=== PATIENT | male | born 1955 | race Two or more races ===

== ENCOUNTER 2024-02-21 16:28 | Inpatient (IN) | payer MEDICARE, OTHER ==
[~2024-02-21] VITALS: Ht 167.6 cm; Wt 81.6 kg
[2024-02-21 17:03] LABS: BASOPHILS % (AUTO) 0.4 % (0.0-2.0); EOSINOPHILS # (AUTO) 0.2 K/uL (0.0-0.7); EOSINOPHILS % (AUTO) 2.9 % (0.0-6.0); HEMATOCRIT 38 % (39-51); HEMOGLOBIN 13.1 g/dL (13.5-17.5); LYMPHOCYTES # (AUTO) 2.1 K/uL (0.8-4.8); LYMPHOCYTES % (AUTO) 26.7 % (20.0-44.0); MEAN CORPUSCULAR HEMOGLOBIN 33 PG (26.0-33.0); MEAN CORPUSCULAR HGB CONC 35 g/dl (31.0-36.0); MEAN CORPUSCULAR VOLUME 94 fL (80-96); MONOCYTES # (AUTO) 0.8 K/uL (0.1-1.30); MONOCYTES % (AUTO) 10.2 % (2.0-12.0); NEUTROPHILS # (AUTO) 4.7 K/uL (1.8-8.9); NEUTROPHILS % (AUTO) 59.8 % (43.0-81.0); PLATELET COUNT (AUTO) 269 K/uL (150-450); RED BLOOD CELL COUNT(AUTO) 4.01 MIL/uL (4.5-6.0); RED CELL DISTRIBUTION WIDTH 13.9 % (11.5-15.0); WHITE BLOOD COUNT (AUTO) 7.8 K/uL (4.3-11.0)
[2024-02-21] MEDS ORDERED: IBUP-1953 PO (17:03)
[2024-02-21] MEDS ORDERED: MAGN400O6 PO (17:03)
[2024-02-21] MEDS ORDERED: DIVA250T4 PO (17:03)
[2024-02-21] MEDS ORDERED: FAMO20TA8 PO (17:03)
[2024-02-21] MEDS ORDERED: DOCU100C36 PO (17:03)
[2024-02-21] MEDS ORDERED: ARIP5TAB10 PO (17:03)
[2024-02-21] MEDS ORDERED: NIFE-35 PO (17:03)
[2024-02-21] MEDS ORDERED: RISP2TAB5 PO (17:03)
[2024-02-21] MEDS ORDERED: ACET325T53 PO (17:03)
[2024-02-21 17:22] LABS: CARBON DIOXIDE 25 mmol/L (21-32); CHLORIDE 95 mmol/L (98-107); CREATININE 0.9 mg/dL (0.6-1.3); GLUCOSE 91 mg/dL (74-106); POTASSIUM 3.4 mmol/L (3.5-5.1); SODIUM SERUM 132 mmol/L (136-145); UREA NITROGEN, BLOOD 7 mg/dL (7-18)
[2024-02-21 17:29] LABS: APPEARANCE,URINE CLEAR (CLEAR); BILIRUBIN,URINE NEGATIVE (NEGATIVE); BLOOD, URINE NEGATIVE Ery/uL (NEGATIVE); COLOR,URINE YELLOW (YELLOW); KETONES,URINE NEGATIVE (NEGATIVE); LEUKOCYTE ESTERASE ,URINE NEGATIVE (NEGATIVE); NITRITE, URINE NEGATIVE (NEGATIVE); PH,URINE 6.5 (5.0-8.0); PROTEIN,URINE NEGATIVE (NEGATIVE); UGLUCOSE NEGATIVE (NEGATIVE); UROBILINOGEN,URINE 0.2 EU/dL (0.2)
[2024-02-21 17:41] LABS: THYROID STIMULATING HORMONE 1.54 uIU/mL (0.358-3.74)
[2024-02-21] MEDS ORDERED: ZOLPIDEM TARTRATE 5 MG TABLET PO PRN (18:00)
[2024-02-21] MEDS ORDERED: ONDANSETRON HCL/PF 4 MG/2 ML VIAL IVP PRN (18:00)
[2024-02-21] MEDS ORDERED: MAGNESIUM HYDROXIDE 30 ML UDC PO PRN ×2 (18:00)
[2024-02-21] MEDS ORDERED: Z GUARD REMEDY 4 OZ OINT TP PRN (18:00)
[2024-02-21] MEDS ORDERED: ACETAMINOPHEN 325 MG TABLET PO PRN (18:00)
[2024-02-21] MEDS ORDERED: MAG HYDROX/AL HYDROX/SIMETH 30 ML UDC PO PRN (18:00)
[2024-02-21] MEDS: POTASSIUM CHLORIDE 10 MEQ TABLET.SA PO ONE (18:43)
[2024-02-21 22:00] VITALS: BP 151/93; TEMP 97.7; O2SAT 97
[2024-02-22 04:00] VITALS: BP 121/82; TEMP 98.5; O2SAT 98
[2024-02-22 06:38] LABS: BASOPHILS % (AUTO) 0.5 % (0.0-2.0); EOSINOPHILS # (AUTO) 0.3 K/uL (0.0-0.7); EOSINOPHILS % (AUTO) 4.6 % (0.0-6.0); HEMATOCRIT 38 % (39-51); LYMPHOCYTES # (AUTO) 1.8 K/uL (0.8-4.8); LYMPHOCYTES % (AUTO) 26.7 % (20.0-44.0); MEAN CORPUSCULAR HEMOGLOBIN 33 PG (26.0-33.0); MEAN CORPUSCULAR HGB CONC 35 g/dl (31.0-36.0); MEAN CORPUSCULAR VOLUME 95 fL (80-96); MONOCYTES # (AUTO) 0.7 K/uL (0.1-1.30); MONOCYTES % (AUTO) 9.7 % (2.0-12.0); NEUTROPHILS % (AUTO) 58.5 % (43.0-81.0); PLATELET COUNT (AUTO) 254 K/uL (150-450); RED BLOOD CELL COUNT(AUTO) 3.98 MIL/uL (4.5-6.0); RED CELL DISTRIBUTION WIDTH 13.9 % (11.5-15.0); WHITE BLOOD COUNT (AUTO) 6.9 K/uL (4.3-11.0)
[2024-02-22 07:09] LABS: CALCIUM, SERUM 8.6 mg/dL (8.5-10.1); CREATININE 0.7 mg/dL (0.6-1.3); MAGNESIUM 2.3 mg/dL (1.8-2.4); PHOSPHORUS 2.9 mg/dL (2.5-4.9); POTASSIUM 3.7 mmol/L (3.5-5.1)
[2024-02-22 08:00] VITALS: BP 110/71; TEMP 98.4; O2SAT 99
[2024-02-22] MEDS: FAMOTIDINE (20 MG) 20 MG TABLET PO SCH (08:55)
[2024-02-22] MEDS: ARIPIPRAZOLE 5 MG TABLET PO SCH (08:55)
[2024-02-22] MEDS: DOCUSATE SODIUM 100 MG CAPSULE PO SCH (08:55)
[2024-02-22] MEDS: DIVALPROEX SODIUM 250 MG TABLET.DR PO SCH (08:55)
[2024-02-22] MEDS: risperiDONE 1 MG TABLET PO SCH (08:55)
[2024-02-22] MEDS: NIFEdipine XL (30MG) 30 MG TAB PO SCH (09:00)
[2024-02-22 16:00] VITALS: BP 126/99; TEMP 97.3; O2SAT 95
[2024-02-22 20:00] VITALS: BP 102/65; TEMP 98.6; O2SAT 96
[2024-02-23 04:00] VITALS: BP 153/84; TEMP 98.8; O2SAT 98
[2024-02-23 07:53] LABS: CALCIUM, SERUM 8.1 mg/dL (8.5-10.1); CREATININE 0.7 mg/dL (0.6-1.3)
[2024-02-23 08:00] VITALS: BP 145/98; TEMP 98.4; O2SAT 98
[2024-02-23 16:00] VITALS: BP 117/94; TEMP 97.5; O2SAT 96
[2024-02-23 20:00] VITALS: BP 119/76; TEMP 97.8; O2SAT 98
[2024-02-24 04:00] VITALS: BP 105/73; TEMP 98.7; O2SAT 96
[2024-02-24 08:00] VITALS: BP 125/76; TEMP 97.8; O2SAT 98
[2024-02-24] MEDS ORDERED: ACET325T53 PO (14:04)
[2024-02-24 17:30] VITALS: BP 122/98; TEMP 98.4; O2SAT 98
== END 2024-02-24 19:14 | DRG 640 ==
LOC: ER 16:43 → MEDSG1 18:17
PROVIDERS: ADMIT Nurse Practitioner Acute Care; ATTEND Nurse Practitioner Acute Care
DX: E87.1 Hypo-osmolality and hyponatremia (principal); G92.8 Other toxic encephalopathy; F03.93 Unspecified dementia, unspecified severity, with mood disturbance; F20.0 Paranoid schizophrenia; F03.918 Unspecified dementia, unspecified severity, with other behavioral disturbance; F03.94 Unspecified dementia, unspecified severity, with anxiety; F03.92 Unspecified dementia, unspecified severity, with psychotic disturbance; E87.6 Hypokalemia; E66.9 Obesity, unspecified; F29 Unspecified psychosis not due to a substance or known physiological condition; K21.9 Gastro-esophageal reflux disease without esophagitis; K44.9 Diaphragmatic hernia without obstruction or gangrene; M19.90 Unspecified osteoarthritis, unspecified site; R27.8 Other lack of coordination; F32.A Depression, unspecified; Z79.899 Other long term (current) drug therapy; Z68.32 Body mass index [BMI] 32.0-32.9, adult; I10 Essential (primary) hypertension; D64.9 Anemia, unspecified
CPT/HCPCS: 36415; 71045-TC; 80048-TC; 83735-TC; 83880; 84100-TC; 84443-TC; 84484-TC; 85025-TC; 87081-TC; 93970-TC; 97112-TC; 97116-TC; 97530-TC; G0378

== ENCOUNTER 2025-07-31 19:34 | Inpatient (IN) | payer MEDICARE, MEDICAID ==
[~2025-07-31] VITALS: Ht 162.6 cm; Wt 72.1 kg
[~2025-07-31 19:34] MED LIST: ACET325T53 PO; ARIP5TAB10 PO; DIVA250T4 PO; DOCU100C36 PO; FAMO20TA8 PO; IBUP-1953 PO; MAGN400O6 PO; NIFE-35 PO; RISP2TAB5 PO
[2025-07-31 20:31] LABS: PLATELET COUNT (AUTO) 252 K/uL (150-450); RED BLOOD CELL COUNT(AUTO) 3.82 MIL/uL (4.5-6.0); RED CELL DISTRIBUTION WIDTH 14.1 % (11.5-15.0); WHITE BLOOD COUNT (AUTO) 8.4 K/uL (4.3-11.0)
[2025-07-31 20:37] LABS: CALCIUM, SERUM 8.6 mg/dL (8.5-10.1); CREATININE 0.7 mg/dL (0.6-1.3); SODIUM SERUM 135.0 mmol/L (136-145); UREA NITROGEN, BLOOD 9.0 mg/dL (7-18)
[2025-07-31 20:42] LABS: ASPARTATE AMINOTRANSFERASE 13.0 U/L (15-37); TOTAL PROTEIN, SERUM 7.3 g/dL (6.4-8.2)
[2025-07-31 20:44] LABS: INR 1.0 (0.91-1.10)
[2025-07-31] MEDS: IV NS 0.9% 1,000 ML BAG IV ONE (20:46)
[2025-07-31] MEDS ORDERED: POTASSIUM CHLORIDE 20 MEQ TAB.PRT.SR PO ONE (21:03)
[2025-07-31] MEDS: POTASSIUM CHLORIDE 20 MEQ TAB.PRT.SR PO ONE (21:07)
[2025-07-31] MEDS ORDERED: DIVA500T54 PO (21:51)
[2025-07-31] MEDS ORDERED: FAMO20TA80 PO (21:51)
[2025-07-31] MEDS ORDERED: ACET325T53 PO (21:51)
[2025-07-31] MEDS ORDERED: IBUP-1953 PO (21:51)
[2025-07-31] MEDS ORDERED: ATOR10TA PO (21:51)
[2025-07-31] MEDS ORDERED: RISP2TAB5 PO (21:51)
[2025-07-31 22:00] VITALS: BP 145/88; TEMP 98.1; O2SAT 98
[2025-07-31] MEDS ORDERED: MAGNESIUM HYDROXIDE 30 ML UDC PO PRN (22:00)
[2025-07-31] MEDS ORDERED: ONDANSETRON HCL/PF 4 MG/2 ML VIAL IVP PRN (22:00)
[2025-07-31] MEDS ORDERED: MAG HYDROX/AL HYDROX/SIMETH 30 ML UDC PO PRN (22:00)
[2025-07-31 22:02] VITALS: BP 145/88; TEMP 98.1; O2SAT 98
[2025-07-31] MEDS: IV NS 0.9% 1,000 ML IV PRN (22:22)
[2025-07-31] MEDS: ENOXAPARIN SODIUM 40 MG/0.4 ML DISP.SYRIN SQ SCH (22:28)
[2025-07-31] MEDS: ACETAMINOPHEN 325 MG TABLET PO PRN (22:49)
[2025-07-31 23:28] LABS: APPEARANCE,URINE CLEAR (CLEAR); BLOOD, URINE NEGATIVE Ery/uL (NEGATIVE); LEUKOCYTE ESTERASE ,URINE NEGATIVE (NEGATIVE); NITRITE, URINE NEGATIVE (NEGATIVE); UGLUCOSE NEGATIVE (NEGATIVE)
[2025-08-01] VITALS: BP 138/87; TEMP 97.7; O2SAT 98
[2025-08-01 04:00] VITALS: BP 144/94; TEMP 97.5; O2SAT 98
[2025-08-01 06:42] LABS: PLATELET COUNT (AUTO) 229 K/uL (150-450); RED BLOOD CELL COUNT(AUTO) 3.54 MIL/uL (4.5-6.0); RED CELL DISTRIBUTION WIDTH 14.5 % (11.5-15.0); WHITE BLOOD COUNT (AUTO) 5.9 K/uL (4.3-11.0)
[2025-08-01 07:01] LABS: INR 1.04 (0.91-1.10)
[2025-08-01 07:10] LABS: ASPARTATE AMINOTRANSFERASE 12.0 U/L (15-37); CALCIUM, SERUM 8.2 mg/dL (8.5-10.1); CREATININE 0.6 mg/dL (0.6-1.3); PHOSPHORUS 3.4 mg/dL (2.5-4.9); SODIUM SERUM 139.0 mmol/L (136-145); TOTAL PROTEIN, SERUM 6.5 g/dL (6.4-8.2); UREA NITROGEN, BLOOD 11.0 mg/dL (7-18)
[2025-08-01] MEDS ORDERED: MAG30ORA PO (07:58)
[2025-08-01] MEDS ORDERED: RISP1TAB97 PO (07:58)
[2025-08-01 08:00] VITALS: BP 139/94; TEMP 98.4; O2SAT 99
[2025-08-01] MEDS: PANTOPRAZOLE 40 MG TABLET.DR PO SCH (09:01)
[2025-08-01 12:00] VITALS: BP 156/98; TEMP 97.7; O2SAT 97
[2025-08-01 16:00] VITALS: BP 131/79; TEMP 98.2; O2SAT 98
[2025-08-01 20:00] VITALS: TEMP 97.7; O2SAT 97
[2025-08-02] VITALS: BP 139/90; TEMP 98.2; O2SAT 96
[2025-08-02 04:00] VITALS: BP 155/89; TEMP 97.7; O2SAT 98
[2025-08-02 08:00] VITALS: BP 157/81; TEMP 97.7; O2SAT 95
[2025-08-02 11:55] VITALS: BP 117/82; TEMP 97.9; O2SAT 97
[2025-08-02 16:00] VITALS: BP 103/68; TEMP 97.9; O2SAT 94
[2025-08-02 20:00] VITALS: BP 125/98; TEMP 97.7; O2SAT 96
[2025-08-03 04:51] VITALS: BP 117/76; TEMP 97.7; O2SAT 95
[2025-08-03 09:41] VITALS: BP 127/76; TEMP 97.5; O2SAT 95
== END 2025-08-03 08:38 | disposition left against medical advice (07) | DRG 641 ==
LOC: ER 19:43 → TELE 21:30
PROVIDERS: ADMIT Nurse Practitioner Family
DX: E86.0 Dehydration (principal); E44.1 Mild protein-calorie malnutrition; F03.918 Unspecified dementia, unspecified severity, with other behavioral disturbance; R62.7 Adult failure to thrive; E88.09 Other disorders of plasma-protein metabolism, not elsewhere classified; D64.9 Anemia, unspecified; I10 Essential (primary) hypertension; E66.9 Obesity, unspecified; F25.9 Schizoaffective disorder, unspecified; F03.93 Unspecified dementia, unspecified severity, with mood disturbance; E87.6 Hypokalemia; E87.1 Hypo-osmolality and hyponatremia; M19.90 Unspecified osteoarthritis, unspecified site; E78.5 Hyperlipidemia, unspecified; F31.9 Bipolar disorder, unspecified; G62.9 Polyneuropathy, unspecified; K21.9 Gastro-esophageal reflux disease without esophagitis; R27.8 Other lack of coordination; Z79.899 Other long term (current) drug therapy; Z91.148 Patient's other noncompliance with medication regimen for other reason; Z68.27 Body mass index [BMI] 27.0-27.9, adult; K59.00 Constipation, unspecified; F39 Unspecified mood [affective] disorder
CPT/HCPCS: 36415; 71045-TC; 80048-TC; 80076-TC; 83735-TC; 84100-TC; 84443-TC; 85025-TC; 85610-TC; 85730-TC; 87040-TC; 87081-TC; 87086-TC; 93307-TC; 97110-TC; 97112-TC; 97116-TC; A4223; G0378; J1650; J7030